=== PATIENT | female | born 1995 | race Caucasian/White ===

== ENCOUNTER 2017-07-13 16:12 | Outpatient (CLI) | payer OTHER ==
[2017-07-13 16:56] LABS: APPEARANCE,URINE SLIGHTLY-CLOUDY; BILIRUBIN,URINE NEGATIVE (NEGATIVE); GLUCOSE, URINE NEGATIVE (NEGATIVE); KETONES,URINE NEGATIVE (NEGATIVE); LEUKOCYTE ESTERASE,URINE TRACE (NEGATIVE); NITRITE,URINE NEGATIVE (NEGATIVE); PROTEIN,URINE NEGATIVE (NEGATIVE); URINE SPECIFIC GRAVITY 1.021; UROBILINOGEN,URINE NEGATIVE mg/dL (<2.0)
[2017-07-13 17:11] LABS: AMNISURE (ROM) NEGATIVE (NEGATIVE)
[2017-07-13 17:17] LABS: URINE BARBITURATES SCREEN NEGATIVE; URINE METHADONE SCREEN NEGATIVE; URINE OPIATES LOW NEGATIVE; URINE PHENCYCLIDINE SCREEN NEGATIVE
== END 2017-07-13 17:25 | disposition home or self-care (01) ==
LOC: LC 16:12
PROVIDERS: ATTEND Obstetrics & Gynecology Gynecology
DX: Z34.83 Encounter for supervision of other normal pregnancy, third trimester (principal); Z3A.38 38 weeks gestation of pregnancy
CPT/HCPCS: 59025; 80307; 81005; 84112

== ENCOUNTER 2017-07-23 14:52 | Inpatient (IN) | payer OTHER ==
[2017-07-29] MEDS ORDERED: RINGERS SOLUTION,LACTATED 300 ML IV ONE (18:20)
[2017-07-29] MEDS ORDERED: DINOPROSTONE 10 MG VAGINAL INSERT.SR PV PRN (18:20)
[2017-07-29] MEDS ORDERED: OXYTOCIN/NORMAL SALINE 20 UNIT/1,000 ML RTUINJ IV PRN (18:20)
--- NOTE | 2017-07-29 18:29 | Non Stress Test Report ---
Non Stress Test Datetime Report Generated by CPN: 07/29/2017 18:29 DEMOGRAPHIC EGA NST: 38.4 INDICATION Indication for Study: Ordered by Provider MONITORING Monitor Explained: Monitor Explained; Test Explained; Patient Verbalized Understanding Time on Monitor: 07/13/2017 16:25 Time off Monitor: 07/13/2017 17:14 NST Duration: 49 NST INTERVENTIONS NST Interventions: None Physician Notified NST: H Arian CNM BABY A: [id number] BABY A Movement : Present Contraction Frequency : none FHR Baseline : 125 Accelerations : 15X15 Decelerations : None Variability : Moderate 6-25bpm NST Review: Meets Criteria for Reactive NST NST Review and Verified By : D Bellavance RNC NST Results: Reactive NST REPORT Report Trigger: Send Report
[2017-07-29] MEDS ORDERED: DINOPROSTONE 10 MG VAGINAL INSERT.SR ONE (18:49)
[2017-07-29] MEDS: RINGERS SOLUTION,LACTATED 1,000 ML IV PRN (18:54)
[2017-07-29 19:03] LABS: ABSOLUTE EOSINOPHILS # (AUTO) 0.1 10^3/uL (0.0-0.6); ABSOLUTE LYMPHOCYTES (AUTO) 1.5 10^3/uL (0.5-4.7); ABSOLUTE MONOCYTES (AUTO) 0.6 10^3/uL (0.1-1.4); ABSOLUTE NEUT (AUTO) 5.5 10^3/uL (1.7-8.2); BASOPHILS % (AUTO) 0.3 % (0-2); EOSINOPHILS % (AUTO) 0.8 % (0-6); HEMATOCRIT 32.1 % (36.0-47.0); HGB HCT DIFFERENCE 0.9; LYMPHOCYTES % (AUTO) 19.8 % (13-45); MEAN CORPUSCULAR HEMOGLOBIN 27.8 pg (27.0-33.4); MEAN CORPUSCULAR HGB CONC 34.4 g/dL (32.0-36.0); MEAN CORPUSCULAR VOLUME 81 fl (80-97); MONOCYTES % (AUTO) 7.5 % (3-13); RED BLOOD COUNT 3.97 10^6/uL (3.72-5.28); RED CELL DISTRIBUTION WIDTH 13.8 % (11.5-14.0); SEGMENTED NEUTROPHILS % (AUTO) 71.6 % (42-78); WHITE BLOOD COUNT 7.7 10^3/uL (4.0-10.5)
[2017-07-29 19:23] LABS: APPEARANCE,URINE CLOUDY; BILIRUBIN,URINE NEGATIVE (NEGATIVE); GLUCOSE, URINE NEGATIVE (NEGATIVE); KETONES,URINE NEGATIVE (NEGATIVE); LEUKOCYTE ESTERASE,URINE SMALL (NEGATIVE); NITRITE,URINE NEGATIVE (NEGATIVE); PROTEIN,URINE NEGATIVE (NEGATIVE); URINE SPECIFIC GRAVITY 1.019; UROBILINOGEN,URINE NEGATIVE mg/dL (<2.0)
[2017-07-29 19:43] LABS: URINE BARBITURATES SCREEN NEGATIVE; URINE METHADONE SCREEN NEGATIVE; URINE OPIATES LOW NEGATIVE; URINE PHENCYCLIDINE SCREEN NEGATIVE
[2017-07-29] MEDS ORDERED: ZOLPIDEM TARTRATE 5 MG TABLET ONE (23:25)
[2017-07-29] MEDS ORDERED: ZOLPIDEM TARTRATE 5 MG TABLET PO ONE (23:48)
[2017-07-30] MEDS: RINGERS SOLUTION,LACTATED 1,000 ML IV PRN (03:25)
--- NOTE | 2017-07-30 08:57 | Warning Signs in Babies ---
VOD Warning Signs Datetime Report Generated by [facility]: 07/30/2017 08:57 VOD#608 -Warning Signs in Babies: Needs to be viewed. (07/13/2017 17:17:Cheri Recinos)
[2017-07-30] MEDS ORDERED: OXYTOCIN/NORMAL SALINE 20 UNIT/1,000 ML RTUINJ ONE (09:10)
[2017-07-30] MEDS ORDERED: NALBUPHINE HCL INJ 10 MG/1 ML AMPULE INJ ONE (10:08)
[2017-07-30] MEDS ORDERED: PROMETHAZINE HCL INJ 25 MG/1 ML VIAL IV ONE (10:08)
--- NOTE | 2017-07-30 10:11 | L&D Progress Notes ---
PROGRESS NOTES Datetime Report Generated by CPN: 07/30/2017 10:11 PROGRESS NOTE Impression: Normal Progression of Labor; Reassuring Heart Rate Procedures: Artificial ROM; Sterile Vag Exam Plan: Continue Present Management; Induction Informed Consent Obtained: Vaginal Delivery; Risks, Benefits and Alternatives Discussed Vital Signs : Reviewed Comment: Pt requesting IV pain medication Discussed iv vs. epidural pt desires iv pain meds AROM, clear orders for nubain and phenegran Pt encouraged to position changes VAGINAL EXAM Dilatation: 4 Dilatation: 2 Effacement: 80 Effacement: 80 Station: 1 Station: 0 Contractions: none at admission MEMBRANES Membranes: Ruptured Membranes: Intact Amniotic Fluid Color: Clear FETUS A FHR - Baseline: 125 Monitoring: External US Variability: Moderate 6-25bpm Accelerations: 15X15 Decelerations: None FHR Category: Category I Presentation: Vertex SIGNATURE SIGNATURE: [id number];[id number];[id number] SIGNATURE: [id number];[id number] SIGNATURE: [id number] Assignment: Brodie Mcgregor MD Signature: with User ID: [email or web address] : with User ID: [email or web address]
[2017-07-30] MEDS ORDERED: PROMETHAZINE HCL INJ 25 MG/1 ML VIAL ONE (10:13)
[2017-07-30] MEDS ORDERED: LIDOCAINE 1% INJ-PF (10 MG/ML) 30 ML SDV ONE (10:13)
[2017-07-30] MEDS ORDERED: NALBUPHINE HCL INJ 10 MG/1 ML AMPULE ONE (10:13)
[2017-07-30] MEDS ORDERED: MISOPROSTOL 0.2 MG TABLET ONE (10:13)
--- NOTE | 2017-07-30 11:36 | L&D Progress Notes ---
PROGRESS NOTES Datetime Report Generated by CPN: 07/30/2017 11:36 PROGRESS NOTE Impression: Normal Progression of Labor; Reassuring Heart Rate Procedures: Sterile Vag Exam Plan: Continue Present Management Informed Consent Obtained: Vaginal Delivery Vital Signs : Reviewed Comment: coping well with ctx, would like to be checked continue present mgmt VAGINAL EXAM Dilatation: 7 Effacement: 90 Station: 1 Contractions: 2-4 MEMBRANES Membranes: Ruptured FETUS A FHR - Baseline: 120 Monitoring: External US Variability: Moderate 6-25bpm Decelerations: None FHR Category: Category I FETUS C SIGNATURE: [id number];[id number];,[id number] Assignment: Brodie Mcgregor MD Signature: with User ID: [email or web address] : with User ID: [email or web address]
[2017-07-30] MEDS ORDERED: ZOLPIDEM TARTRATE 5 MG TABLET PO PRN (13:26)
[2017-07-30] MEDS ORDERED: DIBUCAINE 1% OINTMENT 28 GM TP PRN (13:26)
[2017-07-30] MEDS ORDERED: DIPH/PERTUSS(ACELL)/TETANUS VAC/PF 0.5 ML SYR (>=10YO) IM PRN (13:26)
[2017-07-30] MEDS ORDERED: ACETAMINOPHEN WITH CODEINE #3 TABLET PO PRN ×2 (13:26)
[2017-07-30] MEDS ORDERED: MEASLES,MUMPS&RUBELLA VACC/PF 0.5 ML VIAL SUBCUT PRN (13:26)
[2017-07-30] MEDS ORDERED: BENZOCAINE/MENTHOL AEROSOL SPRAY 56 ML TOP PRN (13:26)
[2017-07-30] MEDS ORDERED: OXYTOCIN/NORMAL SALINE 20 UNIT/1,000 ML RTUINJ IV PRN (13:26)
--- NOTE | 2017-07-30 14:42 | Delivery Summary ---
Del Sum A-C Datetime Report Generated by CPN: 07/30/2017 14:41 DELIVERY PERSONNEL DELIVERY PERSONNEL: [id number] Delivery Doctor:: Africa Don CNM Labor and Delivery Nurse:: Lizzy Castro RNgroover runner Nurse:: Alison Lloyd RN Business Process Consultant/IRONMOLDER: Carmella Reyes, BRIDGE GANG WORKER Additional Personnel: : Hanna Moreno RN MATERNAL INFORMATION Delivery Anesthesia: None Medications After Delivery: Pitocin Bolus-Please Comment; Pitocin Drip 20 Units/1000ml NSS; Other-Please Comment Meds After Delivery Comment: pitocin bolusing per order cytotec 1000mcg Estimated Blood Loss (ml): 200 Maternal Complications: None Provider Comments: of viable female infant, head delivered without difficulty, loose nuchal X2 noted reduced first loop, body delivered through second loop. Infant with spontaneous cry and respirations, to maternal abdomen, cord clamped X 2 after 2 min delay, infant cut free by pts . Spontanous delivery of placenta, via epstein, appears intact, 3 VC, Hemostasis acheived with external fundal massage and IV pitocin, uterus boggy massage and 1000 mcg with good results, right labial lac repaired with 1 single suture. Mother and in stable condition, routine pp care. LABOR SUMMARY EDC: 07/23/2017 00:00 No. Babies in Womb: 1 Attempted: No Labor Anesthesia: IV Sedation LABOR INFORMATION Reason for Induction: Post Dates Onset of Labor: 07/30/2017 11:00 Complete Dilatation: 07/30/2017 12:32 Cervical Ripening Agents: Cervidil Oxytocin: Induction Group B Beta Strep: Negative Antibiotics # of Doses: 0 Steroids Given: None Reason Steroids Not Administered: Not Applicable MEMBRANES Membranes Rupture Method: Artificial Rupture of Membranes: 07/30/2017 10:03 Length of Rupture (hr): 2.92 Amniotic Fluid Color: Clear Amniotic Fluid Amount: Small Amniotic Fluid Odor: Normal STAGES OF LABOR Stage 1 hr: 1 Stage 1 min: 32 Stage 2 hr: 0 Stage 2 min: 26 Stage 3 hr: 0 Stage 3 min: 6 Total Time in Labor hr: 2 Total Time in Labor min: 4 VAGINAL DELIVERY Episiotomy: None Laceration Extension #1: N/A Laceration #2: None Laceration #3: None Laceration Repair: Yes Laceration Repair Note: right labial laceration repaird with 3-0 chromic single suture no anesthesia needed. Sponge Count Correct: Yes Sharps Count Correct: Yes CSECTION DELIVERY Primary Indication: N/A Secondary Indication: N/A CSection Incidence: N/A Labor: N/A Elective: N/A CSection Incision: N/A BABY A INFORMATION Delivery Date/Time: 07/30/2017 12:58 Method of Delivery: Vaginal Born in Route : No : N/A Forceps: N/A Vacuum Extraction: N/A Shoulder Dystocia : No PRESENTATION/POSITION BABY A Presentation: Cephalic Cephalic Presentation: Vertex Vertex Position: Left Occipital Anterior Breech Presentation: N/A PLACENTA INFORMATION BABY A Placenta Delivery Time : 07/30/2017 13:04 Placenta Method of Delivery: Spontaneous Placenta Status: Delivered SCORES BABY A Heart Rate 1 min: >100 bpm Resp Effort 1 min: Good Cry Reflex Irritability 1 min: Cough or Sneeze or Pulls Away Muscle Tone 1 min: Active Motion Color 1 min: Blue/Pale Resuscitation Effort 1 min: Tactile Stimulation SCORE 1 MIN: 8 Heart Rate 5 min: >100 bpm Resp Effort 5 min: Good Cry Reflex Irritability 5 min: Cough or Sneeze or Pulls Away Muscle Tone 5 min: Active Motion Color 5 min: Body [place], Extremities Blue Resuscitation Effort 5 min: Tactile Stimulation SCORE 5 MIN: 9 INFANT INFORMATION BABY A Gestational Age at Delivery: 41.0 Gestational Status: Late Term- 41- 41.6 Weeks Infant Outcome : Liveborn Infant Condition : Stable Sex: Female IDENTIFICATION BABY A Verification Date/Time: 07/30/2017 13:31 ID Band Number: [id number] Mother's Name Verified: Yes Infant RN Verifying : C [place] RN Additional Verifying Personnel: R Diomedes RN WEIGHT/LENGTH BABY A Infant Birthweight (gm): 3490 Weight (lb): 7 Infant Weight (oz): 11 Length (in): 20.25 Length (cm): 51.44 CORD INFORMATION BABY A No. Cord Vessels: 3 Nuchal Cord : Around Neck x2, Loose Cord Blood Taken: Yes-For Storage (Mom's Blood type +) Suction: None ASSESSMENT BABY A Infant Complications: None Physical Findings at Delivery: Molding of the Head Infant Respirations: Appears Normal Skin to Skin: Yes Logistics Solution Manager/ALS Called : No Infant Care By: Paolo Moreno RN Transferred To: Remains with Mother BABY B INFORMATION : N/A SIGNATURES Assignment: Brodie Mcgregor MD Signature: with User ID: [email or web address] : with User ID: [email or web address]
[2017-07-30] MEDS: IBUPROFEN 800 MG TABLET PO SCH ×2 (17:32→21:31)
[2017-07-30] MEDS: FERROUS SULFATE 325 MG TABLET PO SCH (17:36)
[2017-07-30] MEDS: DOCUSATE SODIUM 100 MG CAPSULE PO SCH (17:36)
[2017-07-31] MEDS: IBUPROFEN 800 MG TABLET PO SCH ×3 (05:59→21:15)
[2017-07-31 08:10] LABS: HEMATOCRIT 33.5 % (36.0-47.0); HEMOGLOBIN 11.3 g/dL (12.0-15.5); HGB HCT DIFFERENCE 0.4; MEAN CORPUSCULAR HEMOGLOBIN 27.6 pg (27.0-33.4); MEAN CORPUSCULAR HGB CONC 33.7 g/dL (32.0-36.0); MEAN CORPUSCULAR VOLUME 82 fl (80-97); RED BLOOD COUNT 4.09 10^6/uL (3.72-5.28); RED CELL DISTRIBUTION WIDTH 13.8 % (11.5-14.0); WHITE BLOOD COUNT 13.7 10^3/uL (4.0-10.5)
--- NOTE | 2017-07-31 08:56 | PDOC PROGRESS REPORT ---
Subjective-OB Subjective: Post Delivery Day: 22 year old. Denies any needs at this time Doing well, no c/o, , voiding, scant bleeding Physical Exam (OB) Vital Signs: Temp Pulse Resp BP Pulse Ox 97.8 F 88 16 115/83 96 07/31/17 00:15 07/31/17 00:15 07/31/17 00:15 07/31/17 00:15 07/31/17 00:15 Intake & Output 07/30/17 07/31/17 08/01/17 06:59 06:59 06:59 Weight 78.6 kg - Lochia Lochia Amount: Moderate 25-50 ml Lochia Color: Rubra/Red - Abdomen Description: Tender, Soft Hernia Present: No Fundal Description: Firm, Midline Fundal Height: u/u - u/2 Objective-Diagnostic Laboratory: 07/31/17 07:11 07/31/17 07:11 WBC 13.7 H RBC 4.09 Hgb 11.3 L Hct 33.5 L MCV 82 MCH 27.6 MCHC 33.7 RDW 13.8 Plt Count 182 Assessment and Plan(PN) - Assessment and Plan (1) Normal vaginal delivery Is this a current diagnosis for this admission?: Yes - Time Spent with Patient Time with patient: Less than 15 minutes Medications reviewed and adjusted accordingly: Yes - Disposition Anticipated Discharge: Home Within: within 24 hours
[2017-07-31] MEDS: FERROUS SULFATE 325 MG TABLET PO SCH ×2 (10:22→17:55)
[2017-07-31] MEDS: PRENATAL VITAMIN W DHA CAPSULE PO SCH (10:23)
[2017-07-31] MEDS: SENNOSIDES/DOCUSATE 8.6-50 MG 1 EACH TABLET PO SCH (10:25)
[2017-07-31] MEDS: DOCUSATE SODIUM 100 MG CAPSULE PO SCH ×2 (10:25→17:55)
[2017-08-01] MEDS: IBUPROFEN 800 MG TABLET PO SCH ×2 (06:19→13:17)
--- NOTE | 2017-08-01 08:13 | Admission Physical ---
Datetime Report Generated by CPN: 08/01/2017 08:12 CURRENT ADMISSION Chief Complaint: Scheduled Induction of Labor Indication for Induction: Post Dates Indication for Induction: Term, Intrauterine ; No Active Labor; Intact Membranes; Induction of Labor Admit Plan: Admit to Unit; Initiate Labor Induction Protocol ALLERGIES Medication Allergies: No Medication Allergies: No Known Allergies (07/29/2017) Medication Allergies: No Known Allergies (07/13/2017) Medication Allergies: none Latex: No Latex Allergies Food Allergies: N/A Environmental Allergies: N/A OBSTETRICAL HISTORY EDC: 07/23/2017 00:00 : 2 Para: 0 Term: 0 : 0 SAB: 1 IAB: 0 Ectopic: 0 Livin Cesareans: 0 VBACs: 0 Multiple Births: 0 Gestational Diabetes: No Rh Sensitization: No Incompetent Cervix: No ABHIJIT: No Infertility: No ART Treatment: No Uterine Anomaly: No IUGR: No Hx Previous C/S: No Macrosomia: No Hx Loss/Stillborn: No PIH: No Hx : No Placenta Previa/Abruption: No Depression/PP Depression: No PTL/PROM: No Post Hemorrhage: No Current Procedures: Ultrasound; NST Obstetrical History Comments: G1- SAB G2- Current SEE RECORDS Alcohol: No Marijuana : No Cocaine: No Other Illicit Drugs: No Cigarettes: Never Smoker. [id number] MEDICAL HISTORY Diabetes: No Blood Transfusion: No Pulmonary Disease (Asthma, TB): No Breast Disease: No Hypertension: No Hot Pond Operator Surgery: No Heart Disease: No Hosp/Surgery: No Autoimmune Disorder: No Anesthetic Complications: No Kidney Disease: No Abnormal Pap Smear: No Neuro/Epilepsy: No Psychiatric Disorders: No Other Medical Diseases: No Hepatitis/Liver Disease: No Significant Family History: No Varicosities/Phlebitis: No Trauma/Violence : No Thyroid Dysfunction: No INFECTIOUS HISTORY Gonorrhea: No Genital Herpes: No Chlamydia: No Tuberculosis: No Syphilis: No Hepatitis: No HIV/AIDS Exposure: No Rash or Viral Illness: No HPV: No PHYSICAL EXAM General: Normal HEENT: Normal Neurologic: Normal Thyroid: Deferred Heart: Normal Lungs: Normal Breast: Deferred Back: Normal Abdomen: Normal Genitourinary Exam: Normal Extremities: Normal DTRs: Normal Pelvic Type: Adequate Vital Signs: Reviewed; Within Normal Limits VAGINAL EXAM Dilatation: 7 Dilatation: 4 Dilatation: 2 Effacement: 90 Effacement: 80 Effacement: 80 Station: 1 Station: 1 Station: 0 Contraction Comments: 2-4 Contraction Comments: none at admission MEMBRANES Membranes: Ruptured Membranes: Ruptured Membranes: Intact Amniotic Fluid Color: Clear FETUS A EGA: 40.6 Monitoring: External US FHR- Baseline: 120 Variability: Moderate 6-25bpm Accelerations: 15X15 Decelerations: None FHR Category: Category I Presentation: Vertex Admit Comment: 22yo at 40+6ega presents for IOL due to Post LARRY. Pelvis adequate for ABAD. EFW 9# (last US measurement 8#12oz). Failed 1 hr GTT. Unable to complete 3 hr GTT - checked sugars but normal 2 hrs. Rubella Non Immune. GBS negative. Admit and cervidil placed. Epidural upon patient request. Anticpate PLANS FOR LABOR AND DELIVERY Labor and Delivery: None Pain Management: Natural Feeding Preference: Breast Benefit of Breast Feed Discussed: Yes Circumcision: N/A INFORMED CONSENT Informed Consent Obtained: Vaginal Delivery Informed Consent Obtained: Vaginal Delivery; Risks, Benefits and Alternatives Discussed Signature: with User ID: [email or web address]
--- NOTE | 2017-08-01 09:31 | PDOC DISCHARGE SUMMARY ---
Final Diagnosis Discharge Date: 08/01/17 - Final Diagnosis (1) Normal vaginal delivery Is this a current diagnosis for this admission?: Yes Discharge Data - Discharge Medication Home Medications: Pnv No.95/Ferrous Fum/Folic AC [ Formula Tablet] 1 tab PO DAILY Ibuprofen [Motrin 800 mg Tablet] 800 mg PO Q8 #60 tablet 08/01/17 Reason(s) for Admission: Induction of Labor Procedures: NST Intrapartum Procedure(s): Spontaneous Vaginal Delivery Complication(s): Laceration-Labial Laceration-Degree: 1st - Diagnosis Test Laboratory: Temp Pulse Resp BP Pulse Ox 98.2 F 68 16 123/59 L 97 08/01/17 07:56 08/01/17 07:56 08/01/17 07:56 08/01/17 07:56 08/01/17 07:56 07/29/17 07/29/17 07/31/17 18:26 18:40 07:11 RBC 3.97 4.09 Hgb 11.0 L 11.3 L Hct 32.1 L 33.5 L Urine Opiates Screen NEGATIVE - Discharge information/Instructions Discharge Activity: Balance Activity w/Rest, Pelvic Rest, No tub bath Discharge Diet: Regular Disposition: HOME, SELF-CARE Follow up with: [facility] in: 4, Weeks
[2017-08-01] MEDS: PRENATAL VITAMIN W DHA CAPSULE PO SCH (10:42)
[2017-08-01] MEDS: FERROUS SULFATE 325 MG TABLET PO SCH ×2 (10:42→18:19)
[2017-08-01] MEDS: SENNOSIDES/DOCUSATE 8.6-50 MG 1 EACH TABLET PO SCH (10:44)
[2017-08-01] MEDS: DOCUSATE SODIUM 100 MG CAPSULE PO SCH ×2 (10:44→18:19)
[2017-08-01 13:11] VITALS: BP 131/75
== END 2017-08-01 19:15 | disposition home or self-care (01) | DRG 775 ==
LOC: LR 07-29 18:16 → 2S 07-30 15:40
PROVIDERS: ADMIT Student in an Organized Health Care Education/Training Program; ATTEND Student in an Organized Health Care Education/Training Program
PROC: 4A1HXCZ Monitoring of Products of Conception, Cardiac Rate, External Approach (ICD-10-PCS; 2017-07-29)
PROC: 10E0XZZ Delivery of Products of Conception, External Approach (ICD-10-PCS; principal; 2017-07-30)
PROC: 0UQMXZZ Repair Vulva, External Approach (ICD-10-PCS; 2017-07-30)
PROC: 3E0P7GC Introduction of Other Therapeutic Substance into Female Reproductive, Via Natural or Artificial Opening (ICD-10-PCS; 2017-07-30)
PROC: 10907ZC Drainage of Amniotic Fluid, Therapeutic from Products of Conception, Via Natural or Artificial Opening (ICD-10-PCS; 2017-07-30)
DX: O48.0 Post-term pregnancy (principal); O70.0 First degree perineal laceration during delivery; O69.81X0 Labor and delivery complicated by cord around neck, without compression, not applicable or unspecified; Z3A.41 41 weeks gestation of pregnancy; Z37.0 Single live birth
CPT/HCPCS: 36415; 80307; 81005; 85025; 85027; 86592; 86850; 86900; 86901; 90707; J2300; J2550; J2590; J3490